=== PATIENT | female | born 1960 ===

== ENCOUNTER 2017-07-04 16:05 | Emergency (ER) | payer MEDICAID ==
[2017-07-04 16:16] VITALS: RESP 18
[2017-07-04 17:16] LABS: SQUAMOUS EPITHIAL < 1 /hpf (0-5); URINE BACTERIA RARE (<OCC); URINE BILIRUBIN NEGATIVE (NEGATIVE); URINE BLOOD NEGATIVE (NEGATIVE); URINE CLARITY Clear (Clear); URINE COLOR Colorless (YELLOW); URINE GLUCOSE (UA) NORMAL (Normal); URINE LEUKOCYTE ESTERASE NEG Leu/uL (Negative); URINE PROTEIN NEGATIVE (NEGATIVE); URINE UROBILINOGEN NORMAL mg/dL (0.2-1.0)
--- NOTE | 2017-07-04 17:23 | C.PDOC ---
History Of Present Illness 56yo female, with history of back pain, presents to ER for evaluation of lower back pain. She denies any weakness, numbness, bowel or bladder dysfunction. She also denies any injuries or trauma. No other complaints. Time Seen by Provider: 07/04/17 16:24 Chief Complaint (Nursing): Back Pain History Per: Patient History/Exam Limitations: no limitations Onset/Duration Of Symptoms: Days Current Symptoms Are (Timing): Still Present Quality Of Discomfort: "Pain" Previous Symptoms: Back Pain Associated Symptoms: None. denies: Incontinence, New Weakness, New Numbness Past Medical History Reviewed: Historical Data, Nursing Documentation, Vital Signs Vital Signs: Last Vital Signs Temp 98.4 F 07/04/17 16:11 Pulse 77 07/04/17 16:11 Resp 18 07/04/17 16:11 BP 138/82 07/04/17 16:11 Pulse Ox 99 07/04/17 17:23 - Medical History PMH: Diabetes, HTN, Hypercholesterolemia, Hyperthyroidism Denies: Chronic Kidney Disease Surgical History: Cholecystectomy Family History: States: Unknown Family Hx - Social History Hx Tobacco Use: No Hx Alcohol Use: No Hx Substance Use: No - Immunization History Hx Tetanus Toxoid Vaccination: No Hx Influenza Vaccination: No Hx Pneumococcal Vaccination: No Review Of Systems Except As Marked, All Systems Reviewed And Found Negative. Genitourinary: Negative for: Dysuria, Incontinence, Hematuria Musculoskeletal: Positive for: Back Pain Neurological: Negative for: Weakness, Numbness Physical Exam - Physical Exam Appears: Non-toxic, No Acute Distress Skin: Normal Color, Warm, Dry Head: Normacephalic Eye(s): bilateral: Normal Inspection Neck: Normal ROM, Supple Chest: Symmetrical Cardiovascular: Rhythm Regular Respiratory: Normal Breath Sounds, No Wheezing Back: Paraspinal Tenderness (paralumbar tenderness bilaterally) Extremity: Normal ROM Neurological/Psych: Oriented x3, Normal Speech, Normal Cognition ED Course And Treatment O2 Sat by Pulse Oximetry: 99 (RA) Pulse Ox Interpretation: Normal Progress Note: XR lumbar spine, urinalysis ordered. Disposition - Disposition Referrals: Vesna Ramirez MD [Staff Provider] - Disposition: HOME/ ROUTINE Disposition Time: 18:35 Condition: STABLE Additional Instructions: Follow up with PMD within 1-2 days. Return to ED if feel worse. Prescriptions: Cyclobenzaprine [Cyclobenzaprine HCl] 10 mg PO TID #30 tab Ibuprofen [Motrin Tab] 600 mg PO Q8 #30 tab oxyCODONE/Acetaminophen [Percocet 5/325 mg Tab] 1 tab PO QID PRN #20 tab PRN Reason: Pain Instructions: Low Back Pain (DC) Forms: [employer] (Martiniquais) - Clinical Impression Clinical Impression: Low back pain - PA / SOURCING MANAGER / Resident Statement MD/DO has reviewed & agrees with the documentation as recorded. - Scribe Statement The provider has reviewed the documentation as recorded by the Scribe (Sofia Amaro) Provider Attestation: All medical record entries made by the Scribe were at my direction and personally dictated by me. I have reviewed the chart and agree that the record accurately reflects my personal performance of the history, physical exam, medical decision making, and the department course for this patient. I have also personally directed, reviewed, and agree with the discharge instructions and disposition.
--- NOTE | 2017-07-04 17:29 | RAD ---
PROCEDURE: Radiographs of the Lumbar Spine. HISTORY: atraumatic pain COMPARISON: No prior. FINDINGS: BONES: Normal alignment. No listhesis. No fracture. [place] lumbar spondylosis. DISC SPACES: Animal L5-S1 disc space narrowing OTHER FINDINGS: None. IMPRESSION: Senescent changes. No fracture or lytic lesion
[2017-07-04 18:43] VITALS: BP 135/74; PULSE 84; TEMP 98.2
[2017-07-04 22:10] VITALS: O2SAT 99
== END 2017-07-04 18:52 | disposition home or self-care (01) ==
LOC: C.ER 16:05
DX: M54.5 Low back pain (principal); E11.9 Type 2 diabetes mellitus without complications; E78.00 Pure hypercholesterolemia, unspecified; I10 Essential (primary) hypertension; E05.90 Thyrotoxicosis, unspecified without thyrotoxic crisis or storm